=== PATIENT | female | born 2000 | race Caucasian/White ===

== ENCOUNTER 2023-12-26 17:01 | Emergency (ER) | payer BC, SELFPAY ==
[2023-12-26 17:04] VITALS: BP 123/79
--- NOTE | 2023-12-26 19:36 | ED.GENMED ---
History of Present Illness
General
Chief Complaint: Eye Problems
Source: patient
Time Seen by Provider: 12/26/23 19:11
Travel History
Have you had any contact with someone who has COVID-19?: No
Do you have any symptoms of coronavirus? Fever > 100 degrees, chills, cough, shortness of breath, sore throat, loss of taste or smell, muscle aches, or headache?: No
History of Present Illness
History of Present Illness:
23-year-old female presents to the emergency room complaining of abnormalities of left eye. 3 days ago the patient noted some whitish flashes in the lateral aspect or visual field seemingly out of the left eye. She feels a little bit of pressure
behind the eye and at the end the day more of a headache. She denies migraines. Patient has never experienced anything similar to this before. Now she feels like there are claire 'floaters' in her visual field and her vision in the left eye seems
slightly blurry. No trauma. She does not use contacts. She has glasses which are very mild prescription and she does not actually wear them very often She denies any other significant medical history. She does take control but no other
medications.
Past History
Past History
ED Past Medical History: None
ED Past Surgical History: None
Phy Exam
Physical Exam
Physical Exam:
General: Awake, Alert, Oriented X3. No acute distress.
Vitals: unremarkable
Head: Atraumatic
Eyes: Pupils equal, EOMI, conjunctiva appears normal, anterior chamber and iris appears normal on slit-lamp exam. Visual acuity noted to be 20/16 bilaterally and with binocular vision. There are no areas of abnormal uptake on fluorescein exam.
Intraocular pressure is 10 the affected eye.
Throat: Airway intact, no exudates
Neck: Trachea midline
Neuro: Cranial nerves intact, muscle strength equal bilaterally
Skin: Warm, dry, no rash
Extremities: pulses equal b/l, no edema
Course
Orders/Labs/Results
Orders:
Orders
12/26/23 17:16
Tetracaine HCl [Tetracaine 0.5% Ophthalmic Solution] 1 drop .ROUTE .STK-MED ONE
12/26/23 20:59
Fluorescein Sodium [Ful-Anjelica] 3 mg .ROUTE .STK-MED ONE
Vital Signs
Initial and Last Documented VS:
Initial Vital Signs
Temp Pulse Resp BP Pulse Ox
98.1 F 78 20 123/79 100
12/26/23 17:04 12/26/23 17:04 12/26/23 17:04 12/26/23 17:04 12/26/23 17:04
Last Documented Vital Signs
Temp Pulse Resp BP Pulse Ox
98.1 F 76 16 106/78 99
12/26/23 17:04 12/26/23 20:42 12/26/23 20:42 12/26/23 20:42 12/26/23 20:42
MDM/Problems Addressed
Differential Diagnosis Includes:
Benign floaters, ocular migraine, retinal detachment
MDM/Problems Addressed:
Patient's visual acuity is normal. Her physical exam is normal. My suspicion for retinal pathology is low given her age and no other medical problems. However discussed with ophthalmology. They will arrange to have the patient seen in the office
at the next available appointment.
*Pulse Oximetry
Patient hypoxic: no
*Critical Care Note
Total Time (30-74mins, 75-104mins- exclusive of procedures): Not Applicable
ED Attending Note
-
Portions of this chart may have been created with voice recognition software.� Occasional wrong word or��sound alike� substitutions may have occurred due to the inherent limitations of voice recognition software.
Discharge Plan
Departure
Patient Disposition: Home (Routine Discharge)
Date of Disposition: 12/26/23
Time of Disposition: 20:12
Patient with high blood pressure during this ER visit?: No
Condition: Good
Discharge Problem:
Floaters in visual field
Instructions: Floaters in the Eye
Prescriptions:
No Action
ascorbic acid (vitamin C) [Vitamin C] 500 MG tablet
1,000 mg PO BID Qty: 56 0RF
Rx Instructions:
Take 1,000 mg twice a day for 14 days
albuterol sulfate 1 PUFF HFA aerosol inhaler
2 puff inhalation R Q4HPRN PRN (Reason: shortness of breath) Qty: 1 0RF
zinc sulfate 220 MG capsule
220 mg PO DAILY Qty: 14 0RF
Rx Instructions:
Take 220 mg daily for 14 days
cholecalciferol (vitamin D3) 1,000 UNITS tablet
2,000 units PO DAILY Qty: 28 0RF
Rx Instructions:
Take 2,000 units daily for 14 days
Referrals:
Hue Jenkins MD [Active] -
Kesha Rdz CRNP [Family Provider] -
Activity Restrictions/Additional Instructions:
You should receive a call from Dr. Jenkins's office to make an appointment. If you do not hear from the office by Thursday afternoon call the office. Return if you feel your symptoms are getting worse.
Interventions
Interventions:
*Risk Screen - Suicide Last Done: 12/26/23 17:31
*General Assessment Last Done: 12/26/23 17:31
*Neglect/Abuse Screening Last Done: 12/26/23 17:31
ED- Fall Risk Assessment Last Done: 12/26/23 20:42
*ED COVID-19 Vaccine History Last Done: 12/26/23 20:42
*Nursing Disposition Last Done: 12/26/23 20:42
Discharge Date and Time
Discharge Date/Time: 12/26/23 20:44
Print Language: GEORGIAN
[2023-12-26 20:42] VITALS: BP 106/78
== END 2023-12-26 20:44 | disposition home or self-care (01) ==
LOC: EMR 17:01
PROVIDERS: EMERGENCY PHYSICIAN Emergency Medicine; FAMILY PHYSICIAN Nurse Practitioner Adult Health
DX: H43.392 Other vitreous opacities, left eye (principal); Z91.018 Allergy to other foods; Z88.8 Allergy status to other drugs, medicaments and biological substances; Z91.048 Other nonmedicinal substance allergy status
CPT/HCPCS: 99282

== ENCOUNTER 2024-12-30 22:07 | Emergency (ER) | payer BC, SELFPAY ==
[2024-12-30 22:09] VITALS: BP 114/66
--- NOTE | 2024-12-31 00:16 | ED.MUSCINJ ---
HPI-Injury
General
Chief Complaint: Musculo-Skeletal Complaint
Time Seen by Provider: 12/30/24 22:46
History of Present Illness-Injury
Initial Injury comments:
24-year-old female without significant past medical history presenting to the emergency department for left index finger pain after a weight dropped on her finger at the gym. Patient with subsequent swelling and bruising to the distal aspect of the
finger. Denies additional injuries. Denies numbness or tingling. Denies additional acute medical complaint
Past History
Past History
ED Past Medical History: None
ED Past Surgical History: None
Phy Exam
Physical Exam
Physical Exam:
General: Well-appearing, no clinical signs of dehydration, nontoxic and in no acute distress
HEENT: protecting airway
Neck: appears supple
CV: Normal heart rate
Resp: No accessory muscle use, no increased work of breathing
Abd: Soft and non-distended, no tenderness to palpation
Extremities: Ecchymosis and swelling to the DIP and distal phalanx of the left index finger. Range of motion grossly intact. Sensation intact
Neuro: alert, no focal neurologic deficit
: deferred
Rectal: deferred
Psych: Normal affect
Skin: Intact
Injury Course
Orders/Labs/Results
Orders:
Orders
12/30/24 22:11
Finger(s)/Thumb 2 View Lt [CR Finger(s)/thumb Min 2 Vw Lt] Urgent
Comment:
Reason For Exam: crushing injury to ring finger
Indicate Which Finger:: Ring Finger
MDM/Problems Addressed
MDM/Problems Addressed:
24-year-old female presenting for left fourth digit pain after a crush injury from a weight at the gym. Vital signs are normal.
On exam, patient does have some swelling and ecchymosis to the distal aspect of the left fourth digit. No neurovascular compromise. Range of motion intact. No erythema or warmth or infectious findings. X-ray obtained, does show small distal tuft
fracture. Patient splint. Otherwise feel stable for discharge with continued outpatient supportive therapy. Return precautions discussed and patient verbalized understanding
*Critical Care Note
Total Time (30-74mins, 75-104mins- exclusive of procedures): Not Applicable
ED Attending Note
-
Portions of this chart may have been created with voice recognition software.� Occasional wrong word or��sound alike� substitutions may have occurred due to the inherent limitations of voice recognition software.
Discharge Plan
Departure
Patient Disposition: Home (Routine Discharge)
Date of Disposition: 12/31/24
Time of Disposition: 00:16
Patient with high blood pressure during this ER visit?: No
Condition: Good
Discharge Problem:
Closed fracture of tuft of distal phalanx of left index finger
Instructions: Finger Fracture ED
Prescriptions:
No Action
ascorbic acid (vitamin C) [Vitamin C] 500 MG tablet
1,000 mg PO BID Qty: 56 0RF
Rx Instructions:
Take 1,000 mg twice a day for 14 days
albuterol sulfate 1 PUFF HFA aerosol inhaler
2 puff inhalation R Q4HPRN PRN (Reason: shortness of breath) Qty: 1 0RF
zinc sulfate 220 MG capsule
220 mg PO DAILY Qty: 14 0RF
Rx Instructions:
Take 220 mg daily for 14 days
cholecalciferol (vitamin D3) 1,000 UNITS tablet
2,000 units PO DAILY Qty: 28 0RF
Rx Instructions:
Take 2,000 units daily for 14 days
Referrals:
Yasemin Coto PA-C [Family Provider] -
Activity Restrictions/Additional Instructions:
You were seen in the emergency department for left index finger pain
You were found to have a fracture of the distal tuft of your finger. Please maintain the splint that was provided. Please take Tylenol or Motrin as needed for pain
Please follow-up closely with your primary care physician.
Return to the emergency department for any worsening of your symptoms, or any development of chest pain, difficulty breathing, abdominal pain with persistent vomiting and inability to tolerate food or liquid by mouth (concern for dehydration),
weakness, headache or confusion, fever greater than 100.4, or any additional symptoms that are concerning to you.
Thank you for choosing [facility].
Interventions
Interventions:
*Risk Screen - Suicide Last Done: 12/30/24 22:39
*General Assessment Last Done: 12/30/24 22:39
*Neglect/Abuse Screening Last Done: 12/30/24 22:39
*ED- Fall Risk Assessment Last Done: 12/30/24 22:39
*ED COVID-19 Vaccine History Last Done: 12/30/24 22:39
ED-Musculoskeletal Assessment Last Done: 12/30/24 22:39
Discharge Date and Time
Print Language: CHADIAN
[2024-12-31 00:42] VITALS: BP 109/80
== END 2024-12-31 00:45 | disposition home or self-care (01) ==
LOC: EMR 22:07
PROVIDERS: EMERGENCY PHYSICIAN Student in an Organized Health Care Education/Training Program; FAMILY PHYSICIAN Physician Assistant
DX: S62.635A Displaced fracture of distal phalanx of left ring finger, initial encounter for closed fracture (principal); W23.0XXA Caught, crushed, jammed, or pinched between moving objects, initial encounter
CPT/HCPCS: 99283; 73140

== ENCOUNTER → 2025-05-30 10:42 | Outpatient (REF) | payer BC, SELFPAY | LOC: RAD 10:42 | PROVIDERS: ATTENDING PHYSICIAN Chiropractor | DX: M99.01 Segmental and somatic dysfunction of cervical region (principal) | CPT/HCPCS: 72050 ==